=== PATIENT | male | born 1965 | race American Indian/Alaskan Native ===

== ENCOUNTER 2017-12-19 07:24 | Day surgery (SDC) | payer OTHER ==
[2017-12-19 08:48] LABS: Basophils % (Auto) 0.9 % (0.0-1.8); Eosinophils # (Auto) 0.1 K/mm3 (0.0-0.4); Hematocrit 40.1 % (35.5-45.6); Hemoglobin 13.4 gm/dl (11.8-15.2); Lymphocytes % (Auto) 35.8 % (13.4-35.0); Mean Corpuscular HGB Conc 33 % (32-34); Mean Corpuscular Hemoglobin 28 pg (28-32); Mean Corpuscular Volume 84 fl (84-94); Monocytes # (Auto) 0.3 K/mm3 (0.0-0.8); Monocytes % (Auto) 9.5 % (0.0-7.3); Platelet Count 171 K/mm3 (140-440); Red Blood Count 4.79 M/mm3 (3.65-5.03); Red Cell Distribution Width 14.2 % (13.2-15.2)
[2017-12-19 08:58] LABS: INR 0.91 (0.87-1.13)
[2017-12-19] MEDS ORDERED: NACL 0.9% 500 ML 500 ML IV SCH (09:00)
[2017-12-19 09:21] LABS: BUN/Creatinine Ratio 23; Blood Urea Nitrogen 16 mg/dL (9-20); Hemolysis Index 840
[2017-12-19] MEDS ORDERED: ECOTRIN PO NR (09:30)
[2017-12-19 09:55] LABS: BUN/Creatinine Ratio 19; Blood Urea Nitrogen 15 mg/dL (9-20); Calcium 8.5 mg/dL (8.4-10.2); Hemolysis Index 11
[2017-12-19] MEDS ORDERED: HEPARIN 10,000 UNITS/10 ML ONE (10:31)
[2017-12-19] MEDS ORDERED: XYLOCAINE 2% INFILTRATI ONE (10:31)
[2017-12-19] MEDS ORDERED: HEPARIN/NS 5000 UNIT/500ML(CATH LAB) 1,000 ML IR ONE (10:31)
[2017-12-19] MEDS ORDERED: CALAN ONE (10:31)
[2017-12-19] MEDS ORDERED: NITROGLYCERIN SYRINGE 3 ML ONE (10:32)
[2017-12-19] MEDS ORDERED: VERSED ONE (10:47)
[2017-12-19] MEDS ORDERED: SUBLIMAZE ONE (10:47)
--- NOTE | 2017-12-19 12:14 | Cardiac Catherization Report ---
REFERRING PHYSICIAN: Juan Carlos Gomez M.D. INDICATION FOR PROCEDURE: The patient is a pleasant 52-year-old male with recurrent chest pain, on antianginals, abnormal stress test, referred for left heart catheterization. PROCEDURE IN DETAIL: The patient was brought to the director of cath lab in a postabsorptive state, prepped and draped in sterile fashion. Gen's test of the right hand was normal. 2 mL of 2% lidocaine was used to anesthetize the right wrist. A standard 6-Frisian hydrophilic sheath was used to cannulate the right radial artery via modified Seldinger technique. All exchanges performed to exchange a J-tip guidewire. JL3.5 catheter was used to engage the left main. No dampening or ventricularization. No dampening or ventricularization. Cineangiography performed in multiple projections. JR4 catheter used to cross the valve under fluoroscopic guidance. Left ventriculography performed in 30 CORDOBA and 30 MOLDOVAN projections via hand injections. Catheter flushed. Manual pullback performed with continuous pressure monitoring. Next, catheter used to attempt to engage the right coronary. The right coronary appears to be very small, nondominant, but it does appear to arise from either the noncoronary cusp or posteriorly from the right coronary cusp. Course is unclear, but no significant disease identified subselective. Consider cardiac CT to evaluate his course. Moderate sedation was employed and directly administered and overseen by me with administration of fentanyl and Versed. Moderate sedation began at 10:41 and ended at 11:07. FINDINGS: Aortic pressure is 140/80, LV pressure is 140, LVP of 20 mmHg. Left ventriculography revealed normal systolic performance with estimated ejection fraction of 55-60%. No evidence of aortic stenosis. CORONARY ANATOMY: This is a left dominant system. Left main without significant disease, bifurcates the left anterior descending and left circumflex. LAD is a large vessel, courses anterior intergroove, wraps around the apex. There is a bridge/intramyocardial segment in the mid LAD without evidence of diastolic collapse. No significant disease in the diagonal or LAD. Left circumflex is moderate sized vessel, courses AV groove, gives off the left PDA. No significant disease. RCA as aforementioned is small nondominant arises from noncoronary cusp high posterior from the right coronary cusp. It does not appear to arise from left coronary cusp. Given persistent chest pain and essentially normal coronaries, we proceeded with root aortography with a pigtail catheter in the MOLDOVAN projection. Aortography reveals normal contour, normal diameter. No evidence of aortic insufficiency. No evidence of penetrating aortic ulcer or dissection, normal great vessel anatomy. No immediate complications noted. CONCLUSIONS: 1. No angiographic evidence of significant epicardial coronary disease in this left dominant system. The right coronary is small, nondominant and arises from either the noncoronary cusp for high and posterior after right coronary cusp. Consider evaluation with cardiac CT to better elucidate its course. 2. Normal left ventricular systolic performance, estimated ejection fraction of 55%-60%. No aortic stenosis. 3. Root aortography without evidence of dissection, penetrating ulcer, or aortic insufficiency. Recommend risk factor modification, medical therapy. Results of the procedure explained to the patient. All questions and concerns addressed. Follow up with Dr. Gomez in the office. JOB# [id number] SILVIA/ALESSANDRA
[2017-12-19 12:53] VITALS: BP 145/93
--- NOTE | 2017-12-19 13:42 | Short Stay Summary ---
Short Stay Documentation Date of service: 12/19/17 - History H&P: obtained from office - Allergies and Medications Current Medications: Allergies No Known Allergies Allergy (Verified 12/19/17 08:22) Home Medications Medication Instructions Recorded Confirmed Last Taken Type Acetaminophen [Tylenol Extra 1,000 mg PO Q4HR PRN 12/19/17 12/19/17 12/18/17 History Strength] 1000mg Aspirin EC [Aspirin Enteric Coated 81 mg PO DAILY 12/19/17 12/19/17 12/18/17 History TAB] 81mg Metoprolol Succinate [Metoprolol 25 mg PO DAILY 12/19/17 12/19/17 12/18/17 History Succinate] 25mg Active Medications Sodium Chloride (Nacl 0.9% 500 Ml) 500 mls @ 50 mls/hr IV DIRECT PREMA Stop: 12/19/17 18:59 Last Admin: 12/19/17 09:09 Dose: 50 mls/hr - Brief post op/procedure progress note Date of procedure: 12/19/17 Pre-op diagnosis: abnormal stress test; chest pain Post-op diagnosis: same Procedure: C - see cath report Anesthesia: local Estimated blood loss: none Condition: stable - Disposition Condition at discharge: Good Disposition: DC-01 TO HOME OR SELFCARE - Discharge Diagnoses (1) Abnormal stress test Status: Chronic (2) Chest pain Status: Chronic Short Stay Discharge Plan Activity: advance as tolerated Diet: regular Wound: open to air, keep clean and dry, per your surgeon's advice Follow up with: YONY KRAUS MD [Primary Care Provider] - 7 Days Forms: CardCat PCI D/C Instructions, Work/School Excuse Out Patient
== END 2017-12-19 13:15 | disposition home or self-care (01) ==
LOC: CATHLABREC 07:24
PROVIDERS: ATTEND Internal Medicine
DX: R07.9 Chest pain, unspecified (principal); E78.5 Hyperlipidemia, unspecified; Z79.82 Long term (current) use of aspirin; Z79.899 Other long term (current) drug therapy
CPT/HCPCS: 36415; 80048; 85025; 85610; 85730; 93005; 93010; 93458; 93567; 99156; 99157; C1769; C1894; J1644; J2250; J3010; J7040; Q9967

== ENCOUNTER 2020-08-18 09:12 | Outpatient (CLI) | payer OTHER ==
[2020-08-18] MEDS ORDERED: NITROGLYCERIN 0.4 MG TAB SUBL SL ONE (10:35)
[2020-08-18] MEDS ORDERED: NITROGLYCERIN 0.4 MG TAB SUBL SL NR (10:35)
[2020-08-18] MEDS ORDERED: METOPROLOL TARTRATE 50 MG TAB ONE (10:35)
[2020-08-18 10:36] LABS: Blood Urea Nitrogen 11 mg/dL (9-20)
[2020-08-18] MEDS ORDERED: METOPROLOL TARTRATE 5 MG/5 ML INJ IV ONE (10:36)
[2020-08-18] MEDS ORDERED: METOPROLOL TARTRATE 50 MG TAB PO ONE (10:40)
--- NOTE | 2020-08-18 13:07 | Cat Scan Report ---
CT ANGIOGRAM HEART/STRUCTURE/MORPHOLOGY/FUNCTION HISTORY: Chest pain, anomalous coronary artery, abnormal chest TECHNIQUE: Helical CT was performed following 100 cc IV contrast. All CT scans at this location are p erformed using CT dose reduction for ALARA by means of automated exposure control.. FINDINGS: The CTA portion of this examination will be interpreted by cardiology. Please refer to the report. Heart size is normal. No pericardial abnormality is appreciated. The visualized thoracic aorta and me diastinal structures are within normal limits. The visualized lung bases are clear with no evidence f or parenchymal disease, nodule, infiltrate or effusion. Limited images of the upper abdomen demonstrate mild hepatic steatosis. IMPRESSION: Unremarkable limited CT of the lower chest. Mild hepatic steatosis. Signer Name: Miguel Tariq Jr, MD Signed: 08/18/2020 1:03 PM Workstation Name: [id number]
[2020-08-18 14:24] VITALS: BP 133/65
== END 2020-08-18 12:30 | disposition home or self-care (01) ==
LOC: CT 09:12 → CATHLABREC 09:12
PROVIDERS: ATTEND Internal Medicine Cardiovascular Disease
DX: R07.89 Other chest pain (principal); K76.0 Fatty (change of) liver, not elsewhere classified
CPT/HCPCS: 36415; 75574; 82565; 84520; Q9967